=== PATIENT | female | born 1960 | race Caucasian/White ===

== ENCOUNTER → 2016-12-24 | Outpatient (CLI) | payer BC ==
--- NOTE | 2016-12-24 12:07 | MR ---
EXAMINATION TYPE: MR lumbar spine wo con DATE OF EXAM: 12/24/2016 11:33 AM COMPARISON: NONE HISTORY: DDD, Pain TECHNIQUE: Multiplanar, multisequence images of the lumbar spine were acquired. L1-L2: Normal disc appearance without desiccation. No herniation, protrusion or disc bulging. No ca nal stenosis is present. Foramina are patent bilaterally. L2-L3: Normal disc appearance without desiccation. No herniation, protrusion or disc bulging. No ca nal stenosis is present. Foramina are patent bilaterally. L3-L4: Normal disc appearance without desiccation. No herniation, protrusion or disc bulging. No ca nal stenosis is present. Foramina are patent bilaterally. L4-L5: There is mild disc desiccation noted. Mild posterior disc bulge is identified with mild efface ment ventral thecal sac. No evidence for herniation or protrusion. No central stenosis or foraminal e ncroachment. L5-S1: There is mild disc desiccation noted. Mild posterior disc bulge is identified with mild efface ment ventral thecal sac. No evidence for herniation or protrusion. No central stenosis or foraminal e ncroachment. Lumbar segments are intact. No paraspinal masses are identified. Conus medullaris has a normal appe arance. Parapelvic renal cysts suspected. IMPRESSION: 1. Degenerative disc disease with a mild disc bulging as discussed.
== END ==
LOC: RADMRIMAIN 10:44
PROVIDERS: ATTEND Family Medicine
DX: M51.36 Other intervertebral disc degeneration, lumbar region (principal); M51.37 Other intervertebral disc degeneration, lumbosacral region; M51.26 Other intervertebral disc displacement, lumbar region; M51.27 Other intervertebral disc displacement, lumbosacral region
CPT/HCPCS: 72148

== ENCOUNTER → 2017-01-11 | Outpatient (CLI) | payer BC ==
--- NOTE | 2017-01-11 15:20 | US ---
EXAMINATION TYPE: US kidneys/renal and bladder DATE OF EXAM: 01/11/2017 3:00 PM COMPARISON: MRI lumbar spine December 24, 2016 CLINICAL HISTORY: N28.1 RENAL CYSTS ACQUIRED BILATERAL. Recent MRI stated parapelvic renal cysts seen EXAM MEASUREMENTS: Right Kidney: 8.0 x 4.3 x 5.2 cm Left Kidney: 9.2 x 3.8 x 5.4 cm TECHNOLOGIST IMPRESSION: Right Kidney: smaller in size, no obvious renal cysts seen Left Kidney: cortical thinning, no obvious renal cysts seen Bladder: wnl Bilateral Jets seen: yes There is loss of normal cortical medullary differentiation left kidney with thinned cortex. Central p robable parapelvic cysts and MRI are less well seen on ultrasound. There is overall suboptimal visual ization of left kidney on images saved. There is no evidence for hydronephrosis at this point in time in the right kidney. No nephrolithiasis is seen. No suspicious solid or cystic masses are identifi ed on images saved. The urinary bladder is anechoic. Bilateral ureteral jets are seen. IMPRESSION: Simple appearing cysts left kidney are not confirmed, cannot exclude mild left-sided hydronephrosis b ased on central prominence on ultrasound and MRI. Consider nuclear medicine function study correlatio n or further investigation with multi phase contrast-enhanced CT.
== END | disposition home or self-care (01) ==
LOC: RADUSWWP 14:43
PROVIDERS: ATTEND Family Medicine
DX: N28.1 Cyst of kidney, acquired (principal)
CPT/HCPCS: 76770

== ENCOUNTER 2017-02-10 18:10 | Inpatient (IN) | payer BC ==
--- NOTE | 2017-02-10 20:32 | ED ---
Recheck HPI <Will Mike - Last Filed: 02/10/17 22:17> - General Source: patient, RN notes reviewed Mode of arrival: ambulatory Limitations: no limitations <Haydee Barone - Last Filed: 02/10/17 23:16> - General Chief Complaint: Recheck/Abnormal Lab/Rx Stated Complaint: POSS RENAL FAILURE Time Seen by Provider: 02/10/17 20:06 - History of Present Illness Initial Comments: Patient is a 56-year-old female presents to the emergency room for evaluation. Patient states she saw her primary care provider 2 days ago for generalized weakness and body aches. Patient states she received lab work. Patient states that she received a phone call from her primary care provider today that she was in renal failure need to come to the emergency room. Patient denies any history of renal failure. Patient states she's been having on and off abdominal pain that radiates to her back. Patient states been nauseous but denies any vomiting. Patient does state last week that she had a few episodes of diarrhea. Patient denies any constipation or diarrhea this week. Patient denies chest pain shortness of breath. Patient denies pain or burning during urination, trouble urinating or blood in urine. Patient states she has a history of kidney stones. Patient also states she was diagnosed with a cyst over her right kidney a few years ago. Patient states she has followed up with urologist in the past and no concerning findings were noted. (Haydee Barone ) - Related Data Home Medications Medication Instructions Recorded Confirmed Acetaminophen [Tylenol Arthritis] 650 mg PO BID PRN 02/10/17 02/10/17 Aspirin 325 mg PO DAILY 02/10/17 02/10/17 Esomeprazole Magnesium [NexIUM 22.3 mg PO DAILY 02/10/17 02/10/17 24Hr] HYDROcodone/APAP 5-325MG [[place] 1 tab PO Q6HR PRN 02/10/17 02/10/17 5-325] Lisinopril [Zestril] 20 mg PO HS 02/10/17 02/10/17 Magnesium Oxide [Mag-Ox] 400 mg PO BID 02/10/17 02/10/17 Omeprazole 40 mg PO DAILY 02/10/17 02/10/17 Potassium 99 mg PO DAILY 02/10/17 02/10/17 Simvastatin [Zocor] 20 mg PO HS 02/10/17 02/10/17 Allergies Allergy/AdvReac Type Severity Reaction Status Date / Time Anesthetics - Amide Type Allergy Nausea & Verified 02/10/17 20:17 Vomiting Anesthetics - Fina Type- Allergy Nausea & Verified 02/10/17 20:17 Parabens Vomiting Review of Systems ROS Other: All systems not noted in ROS Statement are negative. <Will Mike - Last Filed: 02/10/17 22:17> ROS Other: All systems not noted in ROS Statement are negative. <Haydee Barone - Last Filed: 02/10/17 23:16> ROS Statement: Those systems with pertinent positive or pertinent negative responses have been documented in the HPI. Past Medical History Past Medical History: Coronary Artery Disease (CAD), Hyperlipidemia, Hypertension History of Any Multi-Drug Resistant Organisms: None Reported Past Surgical History: Heart Catheterization With Stent, Hysterectomy, Orthopedic Surgery, Tubal Ligation Additional Past Surgical History / Comment(s): d & c shoulder carpel tunnel Smoking Status: Never smoker Past Alcohol Use History: Rare Past Drug Use History: None Reported <Haydee Barone - Last Filed: 02/10/17 23:16> General Exam <Will Mike - Last Filed: 02/10/17 22:17> Limitations: no limitations General appearance: alert, in no apparent distress Head exam: Present: atraumatic, normocephalic, normal inspection Eye exam: Present: normal appearance ENT exam: Present: normal exam Neck exam: Present: normal inspection Respiratory exam: Present: normal lung sounds bilaterally. Absent: respiratory distress Cardiovascular Exam: Present: regular rate, normal rhythm, normal heart sounds Extremities exam: Present: normal inspection Back exam: Present: normal inspection Neurological exam: Present: alert, oriented X3, CN II-XII intact, normal gait Psychiatric exam: Present: normal affect, normal mood Skin exam: Present: warm, dry, intact, normal color. Absent: rash <Haydee Barone - Last Filed: 02/10/17 23:16> - General Exam Comments Initial Comments: Sitting in exam room, no acute distress. (Haydee Barone) Course <Will Mike - Last Filed: 02/10/17 22:17> <Haydee Barone - Last Filed: 02/10/17 23:16> Vital Signs 02/10/17 02/10/17 02/10/17 19:06 22:00 23:02 Temperature 98.7 F 97.7 F 97.5 F L Pulse Rate 76 62 73 Respiratory 18 18 18 Rate Blood Pressure 129/72 125/64 109/60 O2 Sat by Pulse 100 100 100 Oximetry - Reevaluation(s) Reevaluation #1: 02/10/17 22:17 I did do a [id number] examination the patient did discuss findings her and her . Patient be admitted for evaluation for hyperkalemia and renal insufficiency. (Will Mike) Medical Decision Making - Lab Data Result diagrams: 02/10/17 20:54 02/10/17 20:54 <Will Mike - Last Filed: 02/10/17 22:17> - Lab Data Result diagrams: 02/10/17 20:54 02/10/17 20:54 <Haydee Barone - Last Filed: 02/10/17 23:16> - Medical Decision Making Patient is a 56-year-old female presents emergency room for reevaluation of labs. Patient states she was called by her primary care provider earlier today to come to the emergency room because she was in renal failure. Labs significant for renal insufficiency. Potassium 6.5. Patient given fluids, Lasix, albuterol updraft and Kayexalate. Case discussed with Dr. Mike. Dr. Mike discussed case with Dr. Linton who agreed to admit patient. (Haydee Barone) - Lab Data Lab Results 02/10/17 02/10/17 02/10/17 Range/Units 20:54 20:54 20:54 WBC 4.3 (3.8-10.6) k/uL RBC 3.37 L (3.80-5.40) m/uL Hgb 11.9 (11.4-16.0) gm/dL Hct 32.9 L (34.0-46.0) % MCV 97.8 (80.0-100.0) fL MCH 35.3 H (25.0-35.0) pg MCHC 36.1 (31.0-37.0) g/dL RDW 11.8 (11.5-15.5) % Plt Count 208 (150-450) k/uL Neutrophils % 51 % Lymphocytes % 40 % Monocytes % 5 % Eosinophils % 1 % Basophils % 0 % Neutrophils # 2.2 (1.3-7.7) k/uL Lymphocytes # 1.7 (1.0-4.8) k/uL Monocytes # 0.2 (0-1.0) k/uL Eosinophils # 0.1 (0-0.7) k/uL Basophils # 0.0 (0-0.2) k/uL Sodium 139 (137-145) mmol/L Potassium 6.5 H* (3.5-5.1) mmol/L Chloride 109 H (98-107) mmol/L Carbon Dioxide 22 (22-30) mmol/L Anion Gap 8 mmol/L BUN 48 H (7-17) mg/dL Creatinine 2.03 H (0.52-1.04) mg/dL Est GFR (MDRD) Af Amer 31 (>60 ml/min/1.73 sqM) Est GFR (MDRD) Non-Af 25 (>60 ml/min/1.73 sqM) Glucose 109 H (74-99) mg/dL Calcium 9.6 (8.4-10.2) mg/dL Magnesium 2.2 (1.6-2.3) mg/dL Total Bilirubin 0.9 (0.2-1.3) mg/dL AST 21 (14-36) U/L ALT 28 (9-52) U/L Alkaline Phosphatase 90 (38-126) U/L Total Protein 7.2 (6.3-8.2) g/dL Albumin 4.2 (3.5-5.0) g/dL Amylase 87 (30-110) U/L Lipase 106 (23-300) U/L Urine Color Yellow Urine Appearance Clear (Clear) Urine pH 5.5 (5.0-8.0) Ur Specific [place] 1.011 (1.001-1.035) Urine Protein Negative (Negative) Urine Glucose (UA) Negative (Negative) Urine Ketones Negative (Negative) Urine Blood Negative (Negative) Urine Nitrite Negative (Negative) Urine Bilirubin Negative (Negative) Urine Urobilinogen <2.0 (<2.0) mg/dL Ur Leukocyte Esterase Negative (Negative) 02/10/17 21:50 Normal sinus rhythm, ventricular rate 75 bpm, NH interval 150 ms, QRS duration 82 ms, QT/QTC 380/424 seconds (Haydee Barone) Disposition <Will Mike - Last Filed: 02/10/17 22:17> Decision Date: 02/10/17 <Haydee Barone - Last Filed: 02/10/17 23:16> Clinical Impression: Hyperkalemia, Renal insufficiency Disposition: ADMITTED IP TO THIS HOSP Condition: Stable
[2017-02-10 21:08] LABS: Basophils % (A) 0 %; CH 34.4; CHCM 35.2; Eosinophils # (A) 0.1 k/uL (0-0.7); Eosinophils % (A) 1 %; HCT 32.9 % (34.0-46.0); HDW 2.56; HGB 11.9 gm/dL (11.4-16.0); Luc # (Auto) 0.12; Luc % (Auto) 3; Lymphocytes # (A) 1.7 k/uL (1.0-4.8); Lymphocytes % (A) 40 %; MCH 35.3 pg (25.0-35.0); MCHC 36.1 g/dL (31.0-37.0); MCV 97.8 fL (80.0-100.0); Mean Platelet Volume 7.8; Monocytes # (A) 0.2 k/uL (0-1.0); Monocytes % (A) 5 %; Neutrophils # (A) 2.2 k/uL (1.3-7.7); Neutrophils % (A) 51 %; RBC 3.37 m/uL (3.80-5.40); RDW 11.8 % (11.5-15.5); WBC 4.3 k/uL (3.8-10.6); WBC (Perox) 4.39
[2017-02-10 21:15] LABS: Appearance,Urine Clear (Clear); Bilirubin,Urine Negative (Negative); Glucose,Urine (UA) Negative (Negative); Ketones,Urine Negative (Negative); Leukocyte Esterase,Urine Negative (Negative); Nitrite,Urine Negative (Negative); PH, Urine 5.5 (5.0-8.0); Protein,Urine Negative (Negative); Specific Gravity,Urine 1.011 (1.001-1.035); UA Billing (MACRO vs. MICRO) CHEM; Urobilinogen,Urine <2.0 mg/dL (<2.0)
[2017-02-10 21:23] LABS: Calcium 9.6 mg/dL (8.4-10.2); Magnesium 2.2 mg/dL (1.6-2.3); Total Bilirubin 0.9 mg/dL (0.2-1.3); Total Protein 7.2 g/dL (6.3-8.2)
[2017-02-10 21:32] LABS: Potassium 6.5 mmol/L (3.5-5.1)
[2017-02-10] MEDS ORDERED: FUROSEMIDE 10 MG/ML 4 ML VIAL IV STA (21:37)
[2017-02-10] MEDS ORDERED: SODIUM CHLORIDE 0.9% 1,000 ML IV ONE (21:37)
[2017-02-10] MEDS ORDERED: ALBUTEROL NEBULIZED 2.5 MG/3 ML INHALATION STA (21:37)
[2017-02-10] MEDS ORDERED: SODIUM POLYSTYRENE SULFONATE 15 GM/60 ML BOTTLE PO STA (21:38)
[2017-02-10] MEDS ORDERED: ONDANSETRON 4 MG/2 ML VIAL IVP PRN (22:33)
[2017-02-10] MEDS ORDERED: ACETAMINOPHEN TAB 325 MG TAB PO PRN (22:33)
[2017-02-10] MEDS ORDERED: HYDROcodone/APAP 5-325MG 1 EACH TAB PO PRN (22:33)
[2017-02-10] MEDS ORDERED: IBUPROFEN 400 MG TAB PO PRN (22:33)
[2017-02-10] MEDS ORDERED: NALOXONE 0.4 MG/ML 1 ML VIAL IV PRN (22:33)
[2017-02-11] MEDS: SODIUM CHLORIDE 0.9% 1,000 ML IV SCH ×3 (01:40→14:22)
[2017-02-11] MEDS: MAGNESIUM OXIDE 400 MG TAB PO SCH ×2 (08:31→21:10)
[2017-02-11] MEDS ORDERED: ESOMEPRAZOLE MAGNESIUM 22.3 MG PO SCH (09:00)
[2017-02-11] MEDS: PANTOPRAZOLE 40 MG TABLET PO SCH (09:23)
[2017-02-11 09:36] LABS: Calcium 9.3 mg/dL (8.4-10.2); Magnesium 1.8 mg/dL (1.6-2.3); Potassium 5.8 mmol/L (3.5-5.1); Total Bilirubin 1.2 mg/dL (0.2-1.3); Total Protein 6.4 g/dL (6.3-8.2)
[2017-02-11] MEDS ORDERED: SODIUM POLYSTYRENE SULFONATE 15 GM/60 ML BOTTLE PO STA (11:04)
[2017-02-11 11:53] VITALS: BMI 37.0
[2017-02-11] MEDS: ASPIRIN 325 MG TAB PO SCH (12:47)
[2017-02-11] MEDS ORDERED: DEXTROSE 5% IN WATER 1,000 ML IV SCH (13:45)
[2017-02-11] MEDS ORDERED: INSULIN REGULAR 100 UNIT/ML VIAL IV ONE (13:51)
[2017-02-11] MEDS: DEXTROSE 50%-WATER 50 ML SYRINGE IVP STA ×2 (14:15→14:22)
[2017-02-11] MEDS ORDERED: SODIUM BICARB 8.4% 50 ML SYR (1 MEQ/ML) IV ONE ×3 (14:15→14:45)
[2017-02-11 18:21] LABS: Potassium 5.2 mmol/L (3.5-5.1)
--- NOTE | 2017-02-11 20:29 | HP ---
DATE OF ADMISSION: 02/10/2017 CHIEF COMPLAINT: Abnormal labs and generalized aches and pains. HISTORY OF PRESENT ILLNESS: This 56-year-old woman with a past medical history of CAD, history of hypertension, hyperlipidemia, history of CAD, stent, history of hysterectomy, being followed by Dr. Wanda Hare in the outpatient setting, was not feeling well last week. The patient had diarrhea, some nausea and vomiting. Patient had diminished p.o. intake. Patient was complaining of generalized aches and pains and weakness. Patient went to Dr. Hare's office and was found to have abnormal labs. Patient was directed to [facility]. The patient has multiple abnormal labs, including potassium 6.5, creatinine 2.03. Patient was given some Kayexalate. With some difficulty patient was able to take the Kayexalate. Patient is 5.8 today. Of note, the patient also has multiple evaluations recently. A stress test was done which showed normal findings. The patient also had lumbar spine MRI done which showed degenerative disc disease with mild disc bulging. Patient also had abdominal bladder scan today which showed mild left-sided hydronephrosis. Otherwise, simple cyst of the left kidney was also noted. There is no history of any fever, rigor, or chills. No history of any headache, loss of consciousness, seizures. PAST MEDICAL HISTORY: 1. History of hypertension. 2. Hyperlipidemia. 3. History of CAD and stent. MEDICATIONS PRIOR TO ADMISSION: 1. Zocor 20 mg at bedtime. 2. Potassium 99 mg p.o. daily. 3. Omeprazole 40 mg daily. 4. Magnesium oxide 400 mg p.o. b.i.d. 5. Zestril 20 mg at bedtime. 6. Nexium 24-hour 22.3 mg p.o. daily. ALLERGIES: ANESTHETICS. FAMILY HISTORY: History of cancer and scoliosis. SOCIAL HISTORY: No history of smoking. No history of alcohol intake. REVIEW OF SYSTEMS: ENT: No diminishing hearing. No diminished vision. CARDIOVASCULAR: No angina, palpitations. RESPIRATORY: No cough. GI: No nausea. : No dysuria. NERVOUS SYSTEM: As mentioned earlier. ALLERGY/IMMUNOLOGY: No asthma, hayfever. MUSCULOSKELETAL: As mentioned earlier. HEMATOLOGY/ONCOLOGY: No history of anemia. ENDOCRINE: No history of diabetes, hypothyroidism. CONSTITUTIONAL: As mentioned earlier. DERMATOLOGY: Negative. RHEUMATOLOGY: Negative. PSYCHIATRY: As mentioned earlier. PHYSICAL EXAMINATION: Patient is alert and oriented x3. Pulse is 96, blood pressure 119/62, respiration 19, temperature 96.8, pulse ox 92% on room air. HEENT: Conjunctivae normal. Oral mucosa moist. NECK: No jugular venous distention. No carotid bruit. No lymph node enlargement. CARDIOVASCULAR SYSTEM: S1, S2 muffled. RESPIRATORY SYSTEM: Breath sounds diminished at the bases. A few scattered rhonchi and crackles. ABDOMEN: Soft, non-tender. No mass palpable. LEGS: No edema. No swelling. NERVOUS SYSTEM: Higher functions as mentioned earlier. Moves all 4 limbs. No focal motor or sensory deficit. LYMPHATICS: No lymph node palpable in neck, axillae or groin. SKIN: No ulcer, rash, bleeding. LABS: 4.6, hemoglobin 11.9. Sodium 139, potassium 6.5. Creatinine is 2.03. Glucose is 103. ASSESSMENT: 1. Acute renal failure secondary to acute tubular necrosis and prerenal factors. 2. Hyperkalemia secondary to acute renal failure. 3. History of recent diarrhea with acute viral illness and possibly gastroenteritis. 4. Back pain and degenerative joint disease. 5. Left kidney cyst. 6. Minimal left-sided hydronephrosis. 7. Essential hypertension. 8. Hyperlipidemia. 9. Coronary artery disease, stent. 10. History of hysterectomy. RECOMMENDATIONS AND DISCUSSION: In this 56-year-old woman who presented with multiple complex medical issues, we will monitor the patient closely, continue the current medication. The patient is unable to tolerate Kayexalate. I would recommend changing the fluid to D5 water. Nephrology evaluation. Potassium is still elevated. Glucose/insulin regimen to be used. Otherwise, continue the rest of the medications. Hold lisinopril at this time. Otherwise, monitor the blood pressure closely. Prognosis guarded because of multiple complex medical issues. Further recommendations to follow. A copy of this dictation is being forwarded to Dr. Wanda Hare, who is the primary physician. [facility] CENTERJenae
[2017-02-11] MEDS ORDERED: LISINOPRIL 20 MG TAB PO SCH (21:00)
[2017-02-11] MEDS ORDERED: ATORVASTATIN 10 MG TAB PO SCH (21:00)
[2017-02-11 22:33] VITALS: TEMP 97.6
[2017-02-12] MEDS: SODIUM CHLORIDE 0.9% 1,000 ML IV SCH ×2 (04:58→08:03)
[2017-02-12 07:40] VITALS: BP 120/70; PULSE 62; RESP 18
[2017-02-12] MEDS: PANTOPRAZOLE 40 MG TABLET PO SCH (08:03)
[2017-02-12] MEDS: MAGNESIUM OXIDE 400 MG TAB PO SCH (08:03)
[2017-02-12] MEDS: ASPIRIN 325 MG TAB PO SCH (08:03)
--- NOTE | 2017-02-12 09:39 | P.NPCON ---
History of Present Illness - Reason for Consult acute renal failure - History of Present Illness Reason for consultation: Acute kidney injury History of present illness: Patient is a 56-year-old female seen in renal consultation for acute kidney injury. Her baseline creatinine from August 2016 is near 1 and was 2.03 on admission. It did come down to 1.6 as of yesterday with IV hydration. Patient states she's been feeling weak with general body aches for the last 2 weeks or so. She's also been having diarrhea for the last 2 weeks. No melena or hematochezia. Her oral intake has been poor. Additionally a potassium level of 6.5 and admission. Patient states a potassium level was running low and she was taking potassium supplements. She was also on lisinopril at home. Currently she states her diarrhea is improved. She denies any vomiting. Denies chest pain or shortness of breath. Potassium level did come down 5.2 as of yesterday. Urinalysis is benign. Admits to good urine output. No hematuria or dysuria. Denies use of NSAIDs. Denies family history of renal disease. Vital signs are stable. General: The patient appeared well nourished and normally developed. HEENT: Head exam is unremarkable. Neck is without jugular venous distension. LUNGS: Lungs are clear to auscultation and percussion. Breath sounds decreased. HEART: Rate and Rhythm are regular. First and second heart sounds normal. No murmurs, rubs or gallops. ABDOMEN: Abdominal exam reveals normal bowel sounds. Non-tender and non- distended. No evidence of peritonitis. EXTREMITITES: No clubbing, cyanosis, or edema. Past Medical History Past Medical History: Coronary Artery Disease (CAD), Hyperlipidemia, Hypertension History of Any Multi-Drug Resistant Organisms: None Reported Past Surgical History: Heart Catheterization With Stent, Hysterectomy, Orthopedic Surgery, Tubal Ligation Additional Past Surgical History / Comment(s): d & c shoulder carpel tunnel Past Anesthesia/Blood Transfusion Reactions: Postoperative Nausea & Vomiting ( PONV) Date of Last Stent Placement:: 1998 Smoking Status: Never smoker Past Alcohol Use History: Rare Past Drug Use History: None Reported - Past Family History Father Family Medical History: Cancer Mother Family Medical History: Congestive Heart Failure (CHF), Hypertension, Myocardial Infarction (NM) Additional Family Medical History / Comment(s): scoliosis Medications and Allergies Home Medications Medication Instructions Recorded Confirmed Type Esomeprazole Magnesium [NexIUM 22.3 mg PO DAILY 02/10/17 02/10/17 History 24Hr] Lisinopril [Zestril] 20 mg PO HS 02/10/17 02/10/17 History Magnesium Oxide [Mag-Ox] 400 mg PO BID 02/10/17 02/10/17 History Omeprazole 40 mg PO DAILY 02/10/17 02/10/17 History Potassium 99 mg PO DAILY 02/10/17 02/10/17 History Simvastatin [Zocor] 20 mg PO HS 02/10/17 02/10/17 History Allergies Allergy/AdvReac Type Severity Reaction Status Date / Time Anesthetics - Amide Type Allergy Nausea & Verified 02/10/17 20:17 Vomiting Anesthetics - Fina Type- Allergy Nausea & Verified 02/10/17 20:17 Parabens Vomiting Physical Exam Vitals: Vital Signs Temp Pulse Resp BP Pulse Ox 02/12/17 07:00 97.6 F 62 18 120/70 98 02/11/17 22:31 97.6 F 82 17 106/68 95 02/11/17 15:00 96.7 F L 89 18 120/70 97 Intake and Output 02/11/17 02/12/17 02/12/17 22:59 06:59 14:59 Other: # Voids 1 0 Results - Lab Results Most recent lab results Calcium 9.3 mg/dL (8.4-10.2) 02/11/17 08:58 Magnesium 1.8 mg/dL (1.6-2.3) 02/11/17 08:58 02/10/17 20:54 02/11/17 17:44 Assessment and Plan Plan: Assessment: #1. Nonoliguric acute kidney injury mostly prerenal in nature secondary to diarrhea and poor oral intake. Improving. Creatinine was 2.03 on admission and down to 1.6 as of yesterday. Urinalysis noted to be benign. #2. Hyperkalemia secondary to acute kidney injury and potassium supplementation. Further worsened by metabolic acidosis. Improved with medical management. #3. Metabolic acidosis secondary to acute kidney injury and IV fluids. Improved. #4. Diarrhea. Seems to have improved. Plan: Continue normal saline to be run at 75 mL an hour. Encourage oral intake. Avoid nephrotoxic agents and hypotensive episodes. Potassium supplementation has been discontinued. Follow-up morning labs. Thank you for the consultation. I will continue to follow the patient with you during her hospital stay.
[2017-02-12 10:12] LABS: Potassium 5.3 mmol/L (3.5-5.1)
--- NOTE | 2017-02-13 14:14 | DS ---
DATE OF ADMISSION: 02/10/2017 DATE OF DISCHARGE: 02/12/2017 FINAL DIAGNOSES: 1. Acute renal failure, possibly secondary to acute tubular necrosis and prerenal factors and dehydration secondary to diarrheal disease. 2. Hyperkalemia secondary to acute renal failure. 3. History of recent diarrhea with acute viral illness, possibly acute gastroenteritis. 4. History of back pain degenerative joint disease. 5. Left kidney cyst. 6. Minimal left-sided hydronephrosis. 7. History of hypertension. 8. History of hyperlipidemia. 9. History of coronary artery disease with stent. 10. History of hysterectomy. DISCHARGE DISPOSITION: The patient will be discharged in stable condition with guarded prognosis. Discharged when cleared by Dr. Lamas. HISTORY OF PRESENT ILLNESS: This 56-year-old woman with a past medical history of multiple medical problems being followed by Dr. Wanda Hare in the outpatient setting was admitted with features of acute renal failure hyperkalemia. The patient was given IV fluids. The patient improved significantly. Potassium was 6.5 on admission, improved to 5.3. Creatinine was 1.33. On exam, vitals are stable. CARDIOVASCULAR SYSTEM: S1, S2 muffled. ABDOMEN: Soft. NERVOUS SYSTEM: Nonfocal. Nephrology saw the patient cleared the patient for discharge. The following will be recommendation for the patient: 1. Diet is low potassium. 2. Activity limited until followup. 3. Follow up with Dr. Wanda Hare in 2 to 3 days. 4. CBC, BMP per Dr. Lamas is advised. 5. Medications are: a. Hold JEFFERY inhibitors. b. Magnesium oxide 400 mg p.o. b.i.d.. c. Omeprazole 40 mg daily. d. Zocor 20 mg p.o. q.h.s. 6. The blood pressure to be evaluated in the outpatient setting and consider antihypertensive treatment. Blood pressure is 106/68 and 120/70 currently.
== END 2017-02-12 13:48 | disposition home or self-care (01) | DRG 683 ==
LOC: EC 18:10 → 4MS4W 22:18
PROVIDERS: ADMIT Hospitalist; ATTEND Hospitalist
DX: N17.0 Acute kidney failure with tubular necrosis (principal); E87.2 Acidosis; N13.30 Unspecified hydronephrosis; N28.1 Cyst of kidney, acquired; E87.5 Hyperkalemia; A08.4 Viral intestinal infection, unspecified; I10 Essential (primary) hypertension; I25.10 Atherosclerotic heart disease of native coronary artery without angina pectoris; E78.5 Hyperlipidemia, unspecified; M51.36 Other intervertebral disc degeneration, lumbar region; Z87.442 Personal history of urinary calculi; Z95.5 Presence of coronary angioplasty implant and graft; Z90.710 Acquired absence of both cervix and uterus; Z79.899 Other long term (current) drug therapy
CPT/HCPCS: 36415; 80048; 80051; 80053; 81003; 82150; 83690; 83735; 85025; 93005; 94640; 96361; 96374; 99284

== ENCOUNTER → 2017-02-15 | Outpatient (CLI) | payer BC ==
[2017-02-15 14:26] LABS: CH 34.4; CHCM 34.2; HCT 32.5 % (34.0-46.0); HDW 2.54; HGB 10.9 gm/dL (11.4-16.0); MCH 33.8 pg (25.0-35.0); MCHC 33.4 g/dL (31.0-37.0); Mean Platelet Volume 7.7; RBC 3.22 m/uL (3.80-5.40); RDW 12.2 % (11.5-15.5); WBC 6.5 k/uL (3.8-10.6)
[2017-02-15 14:54] LABS: Calcium 9.7 mg/dL (8.4-10.2); Potassium 4.2 mmol/L (3.5-5.1)
== END | disposition home or self-care (01) ==
LOC: LABWHC1 13:41
PROVIDERS: ATTEND Nurse Practitioner
DX: N17.9 Acute kidney failure, unspecified (principal); I10 Essential (primary) hypertension
CPT/HCPCS: 36415; 80048; 85027

== ENCOUNTER → 2017-02-25 | Outpatient (CLI) | payer BC ==
--- NOTE | 2017-02-26 10:30 | ECHOF ---
Referral Reason: MEASUREMENTS -------- HEIGHT: 152.4 cm WEIGHT: 86.2 kg BP: IVSd: 1.0 cm (0.6 - 1.1) LVIDd: 3.7 cm (3.9 - 5.3) LVPWd: 1.1 cm (0.6 - 1.1) IVSs: 1.0 cm LVIDs: 2.7 cm LVPWs: 1.3 cm Ao Diam: 3.0 cm (2.0 - 3.7) AV Cusp: 1.8 cm (1.5 - 2.6) LA Diam: 2.1 cm (2.7 - 3.8) MV EXCURSION: 13.883 mm (> 18.000) MV EF SLOPE: 104 mm/s (70 - 150) EPSS: 0.9 cm MV E Turner: 1.28 m/s MV DecT: 290 ms MV A Turner: 0.87 m/s MV E/A Ratio: 1.48 RAP: 5.00 mmHg RVSP: 27.28 mmHg FINDINGS -------- Sinus rhythm. This was a technically good study. Left ventricular wall thickness is normal. Overall left ventricular systolic function is normal with, an EF between 55 - 60 %. The right ventricle is normal in size and function. The left atrium is normal in size. The right atrium is normal in size. Aortic valve is trileaflet and is mildly thickened. There is trace mitral regurgitation. Trace tricuspid regurgitation present. The right ventricular systolic pressure, as measured by Doppler, is 27.28mmHg. Pulmonic valve appears structurally normal. The aortic root size is normal. The pericardium is normal. CONCLUSIONS -------- 1. Sinus rhythm. 2. Trace tricuspid regurgitation present. 3. The right ventricular systolic pressure, as measured by Doppler, is 27.28mmHg. 4. Pulmonic valve appears structurally normal. 5. The aortic root size is normal. 6. The pericardium is normal. 7. This was a technically good study. 8. Left ventricular wall thickness is normal. 9. Overall left ventricular systolic function is normal with, an EF between 55 - 60 %. 10. The right ventricle is normal in size and function. 11. The left atrium is normal in size. 12. The right atrium is normal in size. 13. Aortic valve is trileaflet and is mildly thickened. 14. There is trace mitral regurgitation. IMMIGRATION COORDINATOR: Ritu Viveros RDCS
== END | disposition home or self-care (01) ==
LOC: RADECHMAIN 12:56
PROVIDERS: ATTEND Family Medicine
DX: I25.10 Atherosclerotic heart disease of native coronary artery without angina pectoris (principal)
CPT/HCPCS: 93306

== ENCOUNTER → 2017-03-10 | Outpatient (CLI) | payer BC ==
[2017-03-10 10:54] LABS: Basophils % (A) 0 %; CH 34.2; CHCM 33.8; Eosinophils # (A) 0.1 k/uL (0-0.7); Eosinophils % (A) 1 %; HCT 33.2 % (34.0-46.0); HDW 2.66; HGB 10.9 gm/dL (11.4-16.0); Luc # (Auto) 0.13; Luc % (Auto) 3; Lymphocytes # (A) 1.6 k/uL (1.0-4.8); Lymphocytes % (A) 32 %; MCH 33.5 pg (25.0-35.0); MCHC 32.9 g/dL (31.0-37.0); MCV 101.6 fL (80.0-100.0); Macrocytosis Slight; Mean Platelet Volume 7.6; Monocytes # (A) 0.3 k/uL (0-1.0); Monocytes % (A) 5 %; Neutrophils # (A) 2.9 k/uL (1.3-7.7); Neutrophils % (A) 59 %; RBC 3.27 m/uL (3.80-5.40); RDW 12.8 % (11.5-15.5); WBC 4.9 k/uL (3.8-10.6); WBC (Perox) 5.07
[2017-03-10 10:55] LABS: ALT 29 U/L (9-52); AST 28 U/L (14-36); Alkaline Phosphatase 83 U/L (38-126); Anion Gap 9 mmol/L; Blood Urea Nitrogen 14 mg/dL (7-17); Calcium 9.3 mg/dL (8.4-10.2); Carbon Dioxide 27 mmol/L (22-30); Chloride 106 mmol/L (98-107); Cholesterol 178 mg/dL (<200); Glucose 96 mg/dL (74-99); HDL Cholesterol 50 mg/dL (40-60); Magnesium 1.6 mg/dL (1.6-2.3); Non-African American GFR(MDRD) 51 (>60 ml/min/1.73 sqM); Sodium 142 mmol/L (137-145); Total Bilirubin 2.1 mg/dL (0.2-1.3); Total Protein 6.7 g/dL (6.3-8.2); Triglycerides 174 mg/dL (<150); Uric Acid 6.2 mg/dL (3.7-7.4)
== END | disposition home or self-care (01) ==
LOC: LABWHC1 10:09
PROVIDERS: ATTEND Family Medicine
DX: N18.3 Chronic kidney disease, stage 3 (moderate) (principal); E78.5 Hyperlipidemia, unspecified; E83.42 Hypomagnesemia
CPT/HCPCS: 36415; 80053; 80061; 82043; 82306; 83735; 83970; 84550; 85025

== ENCOUNTER 2017-05-18 14:37 | Emergency (ER) | payer BC ==
[2017-05-18 14:43] VITALS: RESP 18
--- NOTE | 2017-05-18 15:09 | ED ---
General Adult HPI - General Chief complaint: Abdominal Pain Stated complaint: Abd Pain Time Seen by Provider: 05/18/17 14:48 Source: patient, RN notes reviewed Mode of arrival: ambulatory Limitations: no limitations - History of Present Illness Initial comments: Chief complaint and history of present illness this is a 49-year-old female complaint of frequency urgency and dysuria for the past 12 hours. Mild discomfort left lower quadrant and left lower back. Patient reports she has had both diverticulitis and kidney stones in the past but this feels different. She states it feels like a urinary tract infection. Denies nausea vomiting or fever. - Related Data Home Medications Medication Instructions Recorded Confirmed Magnesium Oxide [Mag-Ox] 400 mg PO BID 02/10/17 05/18/17 Omeprazole 40 mg PO DAILY 02/10/17 05/18/17 Simvastatin [Zocor] 30 mg PO HS 02/10/17 05/18/17 Acetaminophen [Tylenol Arthritis] 650 mg PO Q6H PRN 05/18/17 05/18/17 Aspirin EC [Ecotrin Low Dose] 81 mg PO DAILY 05/18/17 05/18/17 Ergocalciferol [Vitamin D2] 50,000 unit PO WOOD[place] 05/18/17 05/18/17 Ferrous Sulfate [Feosol] 325 mg PO [place]OD[place] 05/18/17 05/18/17 HYDROcodone/APAP 5-325MG [[place] 1 tab PO Q6HR PRN 05/18/17 05/18/17 5-325] Metoprolol Succinate (ER) [Toprol 50 mg PO DAILY 05/18/17 05/18/17 Xl] Paricalcitol 2 mcg PO SUTH 05/18/17 05/18/17 Previous Rx's Medication Instructions Recorded Ondansetron Odt [Zofran Odt] 4 mg PO Q8HR PRN #10 tab 05/18/17 Tamsulosin [Flomax] 0.4 mg PO DAILY #14 cap 05/18/17 Allergies Allergy/AdvReac Type Severity Reaction Status Date / Time Anesthetics - Amide Type AdvReac Nausea & Verified 05/18/17 15:13 Vomiting Anesthetics - Fina Type- AdvReac Nausea & Verified 05/18/17 15:13 Parabens Vomiting oxycodone AdvReac Nausea & Verified 05/18/17 15:13 Vomiting Review of Systems ROS Statement: Those systems with pertinent positive or pertinent negative responses have been documented in the HPI. Review of systems no complaint of any visual acuity changes no headache no chest pain or shortness of breath no GI problems problems frequency urgency or dysuria. No skin rashes no neuro deficits. All systems are reviewed. Past medical problems significant for coronary artery disease with one stent. She's never had a heart attack. She has hyperlipidemia, hypertension and stage III renal failure. Patient's past surgeries include heart catheterization with one stent, ovaries and tubes, arthroscopic surgery left shoulder. The patient's family history significant for father with colon cancer. The patient is getting colonoscopies. She also has ALLERGIES to am I and Shalonda-type anesthetics. Patient does not smoke rarely drinks alcohol socially. ROS Other: All systems not noted in ROS Statement are negative. Past Medical History Past Medical History: Coronary Artery Disease (CAD), Hyperlipidemia, Hypertension Additional Past Medical History / Comment(s): renal failure stage 3 History of Any Multi-Drug Resistant Organisms: None Reported Past Surgical History: Heart Catheterization With Stent, Hysterectomy, Orthopedic Surgery, Tubal Ligation Additional Past Surgical History / Comment(s): d & c shoulder carpel tunnel Past Anesthesia/Blood Transfusion Reactions: Postoperative Nausea & Vomiting ( PONV) Date of Last Stent Placement:: 1998 Past Psychological History: No Psychological Hx Reported Smoking Status: Never smoker Past Alcohol Use History: Rare Past Drug Use History: None Reported - Past Family History Father Family Medical History: Cancer Mother Family Medical History: Congestive Heart Failure (CHF), Hypertension, Myocardial Infarction ([place]) Additional Family Medical History / Comment(s): scoliosis General Exam - General Exam Comments Initial Comments: General: The patient is awake and alert, complaining of frequency urgency dysuria since this morning. Vital signs show temperature 98.1 pulse 77 respiratory rate 18 pulse ox 96 been room air blood pressure 186/91 Eye: Pupils are equal, round and reactive to light, extra-ocular movements are intact ; there is normal conjunctiva bilaterally. No signs of icterus. Ears, nose, mouth and throat: There are moist mucous membranes and no oral lesions. Neck: The neck is supple, there is no tenderness , no anterior cervical lymphadenopathy, thyroid not enlarged. Cardiovascular: There is a regular rate and rhythm. No murmur, rub or gallop is appreciated. Respiratory: Lungs are clear to auscultation, respirations are non-labored, breath sounds are equal. No wheezes, stridor, rales, or rhonchi. Gastrointestinal: Soft, non-distended, non-tender abdomen without masses or organomegaly noted. There is no rebound or guarding present. No CVA tenderness. Bowel sounds are unremarkable. Chief complaint is left lower back pain and mild left lower quadrant pain. No pain with kidney punching. No rash noted early shingles was discussed. No guarding or evidence of pain with palpation to the left lower quadrant. Back: No rash Musculoskeletal: Normal ROM, no tenderness, slight edema.. There is no calf tenderness or swelling. Sensation intact. Pulses equal bilaterally 2+. Neurological: No complaint of any neuro deficits, no problems with dizziness. Skin: Skin is warm and dry and no rashes or lesions are noted. Early shingles discussed. Limitations: no limitations Course Vital Signs 05/18/17 05/18/17 05/18/17 14:38 15:42 16:57 Temperature 98.1 F Pulse Rate 77 67 60 Respiratory 18 20 18 Rate Blood Pressure 186/91 145/78 O2 Sat by Pulse 96 98 96 Oximetry 05/18/17 18:00 Temperature 96.9 F L Pulse Rate 61 Respiratory 18 Rate Blood Pressure 118/61 O2 Sat by Pulse 95 Oximetry Medical Decision Making - Medical Decision Making Patient states that when she take oxycodone gives her upset stomach. She states she can take Dilaudid. Soon after the patient arrived emergency room her symptoms became more kidney stone-like. Mildly diaphoretic with left lower quadrant pain. Her urine showed 182 red cells 4 whites. No bacteria. Patient had an IV started and she received medications for pain and nausea. Radiologist reviewed the x-ray of the abdomen and his final impression is overall nonobstructive bowel gas pattern as read by Dr. Cool CT the abdomen and pelvis is done without IV oral contrast. Significant findings include there is mild left-sided hydronephrosis and mild plus hydroureter [place] down to a 4 mm obstructing calcification in the distalmost left ureter, approximately 1.5 cm proximal to the left UVJ. There is subtle periureteral edematous reticulation noted. In the upper pole of the right kidney is a 3 mm nonobstructing calcification there are no other calcifications in the kidneys or ureters or bladder. Final impression is positive for mild plus obstructive uropathy on the left, secondary to a 4 mm distal left ureteral calcification. As read by Dr. Velez Patient states she is feeling good enough to go home now. She be placed on medication for pain, also increased urine output and to control nausea. Advised follow-up with family physician she is already seen a urologist before because of a prior kidney stone years ago. Told to call them if she has difficulties return emergency room as needed - Lab Data Result diagrams: 05/18/17 15:55 05/18/17 15:55 Lab Results 05/18/17 05/18/17 05/18/17 Range/Units 15:16 15:55 15:55 WBC 7.7 (3.8-10.6) k/uL RBC 3.68 L (3.80-5.40) m/uL Hgb 12.5 (11.4-16.0) gm/dL Hct 36.1 (34.0-46.0) % MCV 98.1 (80.0-100.0) fL MCH 33.9 (25.0-35.0) pg MCHC 34.5 (31.0-37.0) g/dL RDW 12.2 (11.5-15.5) % Plt Count 223 (150-450) k/uL Neutrophils % 67 % Lymphocytes % 26 % Monocytes % 5 % Eosinophils % 1 % Basophils % 0 % Neutrophils # 5.1 (1.3-7.7) k/uL Lymphocytes # 2.0 (1.0-4.8) k/uL Monocytes # 0.4 (0-1.0) k/uL Eosinophils # 0.1 (0-0.7) k/uL Basophils # 0.0 (0-0.2) k/uL Sodium 143 (137-145) mmol/L Potassium 3.4 L (3.5-5.1) mmol/L Chloride 107 (98-107) mmol/L Carbon Dioxide 28 (22-30) mmol/L Anion Gap 8 mmol/L BUN 11 (7-17) mg/dL Creatinine 1.03 (0.52-1.04) mg/dL Est GFR (MDRD) Af Amer >60 (>60 ml/min/1.73 sqM) Est GFR (MDRD) Non-Af 55 (>60 ml/min/1.73 sqM) Glucose 100 H (74-99) mg/dL Calcium 9.2 (8.4-10.2) mg/dL Total Bilirubin 1.5 H (0.2-1.3) mg/dL AST 26 (14-36) U/L ALT 35 (9-52) U/L Alkaline Phosphatase 76 (38-126) U/L Total Protein 6.4 (6.3-8.2) g/dL Albumin 4.1 (3.5-5.0) g/dL Urine Color Yellow Urine Appearance Clear (Clear) Urine pH 5.5 (5.0-8.0) Ur Specific [place] 1.022 (1.001-1.035) Urine Protein 1+ H (Negative) Urine Glucose (UA) Negative (Negative) Urine Ketones Negative (Negative) Urine Blood Large H (Negative) Urine Nitrite Negative (Negative) Urine Bilirubin Negative (Negative) Urine Urobilinogen 2.0 (<2.0) mg/dL Ur Leukocyte Esterase Small H (Negative) Urine RBC >182 H (0-5) /hpf Urine WBC 4 (0-5) /hpf Ur Squamous Epith Cells 8 H (0-4) /hpf Urine Bacteria Rare H (None) /hpf Hyaline Casts 1 (0-2) /lpf Urine Mucus Rare H (None) /hpf Disposition Clinical Impression: Ureterolithiasis Disposition: HOME SELF-CARE Condition: Fair Instructions: Kidney Stones (ED), How to Strain Your Urine (ED) Additional Instructions: Increase fluids, take medications as directed. Follow-up family physician and neurologist if pain persists Prescriptions: Ondansetron Odt [Zofran Odt] 4 mg PO Q8HR PRN #10 tab PRN Reason: Nausea vomiting Tamsulosin [Flomax] 0.4 mg PO DAILY #14 cap Referrals: Wanda Hare MD [Primary Care Provider] - 1-2 days
[2017-05-18 15:24] LABS: Appearance,Urine Clear (Clear); Bacteria,Urine Rare /hpf; Bilirubin,Urine Negative (Negative); Glucose,Urine (UA) Negative (Negative); Ketones,Urine Negative (Negative); Leukocyte Esterase,Urine Small (Negative); Mucus,Urine Rare /hpf; Nitrite,Urine Negative (Negative); PH, Urine 5.5 (5.0-8.0); Particle Count 4725; Protein,Urine 1+ (Negative); RBC,Urine >182 /hpf (0-5); Specific Gravity,Urine 1.022 (1.001-1.035); Squamous Epithelial Cell,Urine 8 /hpf (0-4); UA Billing (MACRO vs. MICRO) MICRO; WBC,Urine 4 /hpf (0-5)
[2017-05-18] MEDS ORDERED: SODIUM CHLORIDE 0.9% 500 ML IV ONE (15:48)
[2017-05-18] MEDS ORDERED: HYDROmorphone 1 MG/ML 1 ML SYRINGE IVP STA ×2 (15:48→16:48)
[2017-05-18] MEDS ORDERED: ONDANSETRON 4 MG/2 ML VIAL IVP STA (15:54)
[2017-05-18] MEDS ORDERED: SODIUM CHLORIDE 0.9% 1,000 ML IV SCH (16:00)
[2017-05-18 16:09] LABS: Basophils % (A) 0 %; CH 33.9; CHCM 34.7; Eosinophils # (A) 0.1 k/uL (0-0.7); Eosinophils % (A) 1 %; HCT 36.1 % (34.0-46.0); HDW 2.66; HGB 12.5 gm/dL (11.4-16.0); Luc # (Auto) 0.15; Luc % (Auto) 2; Lymphocytes % (A) 26 %; MCH 33.9 pg (25.0-35.0); MCHC 34.5 g/dL (31.0-37.0); MCV 98.1 fL (80.0-100.0); Monocytes # (A) 0.4 k/uL (0-1.0); Monocytes % (A) 5 %; Neutrophils # (A) 5.1 k/uL (1.3-7.7); Neutrophils % (A) 67 %; RBC 3.68 m/uL (3.80-5.40); RDW 12.2 % (11.5-15.5); WBC 7.7 k/uL (3.8-10.6); WBC (Perox) 7.87
[2017-05-18 16:26] LABS: ALT 35 U/L (9-52); AST 26 U/L (14-36); Alkaline Phosphatase 76 U/L (38-126); Anion Gap 8 mmol/L; Blood Urea Nitrogen 11 mg/dL (7-17); Calcium 9.2 mg/dL (8.4-10.2); Carbon Dioxide 28 mmol/L (22-30); Chloride 107 mmol/L (98-107); Glucose 100 mg/dL (74-99); Non-African American GFR(MDRD) 55 (>60 ml/min/1.73 sqM); Potassium 3.4 mmol/L (3.5-5.1); Sodium 143 mmol/L (137-145); Total Bilirubin 1.5 mg/dL (0.2-1.3); Total Protein 6.4 g/dL (6.3-8.2)
--- NOTE | 2017-05-18 16:37 | XR ---
EXAMINATION TYPE: XR abdomen 2V DATE OF EXAM: 05/18/2017 COMPARISON: NONE HISTORY: Pain TECHNIQUE: Single supine KUB image of the abdomen is obtained FINDINGS: Small bowel demonstrates no evidence for dilatation or air fluid levels. Gas and fecal material is seen in non-distended colon. No convincing evidence for pneumoperitoneum. No unusual calcifications. The lung bases are clear. The osseous structures are intact. IMPRESSION: 1. Overall nonobstructive bowel gas pattern.
--- NOTE | 2017-05-18 17:43 | CT ---
EXAMINATION TYPE: CT abdomen pelvis wo con DATE OF EXAM: 05/18/2017 COMPARISON: The lungs HISTORY: LLQ pain. Hx of kidney stones CT DLP: 994.7 mGycm Automated exposure control for dose reduction was used. TECHNIQUE: Helical acquisition of images was performed from the lung bases through the pelvis. FINDINGS: LUNG BASES: No significant abnormality is appreciated. LIVER/GB: No significant abnormality is appreciated. PANCREAS: No significant abnormality is seen. SPLEEN: No significant abnormality is seen. ADRENALS: No significant abnormality is seen. KIDNEYS, URETERS, AND BLADDER: There is mild left-sided hydronephrosis and mild plus hydroureter all the way down to a 4 mm obstructing calcification in the distal most left ureter, approximately 1.5 cm proximal to the left UVJ. There is subtle periureteral edematous reticulation noted. In the upper po le of the right kidney is a 3 mm nonobstructing calcification; there are no other calcifications in t he kidneys or ureters or bladder. FREE AIR: No free air is visualized RETROPERITONEAL ADENOPATHY: None visualized REPRODUCTIVE ORGANS: No significant abnormality is seen PELVIC ADENOPATHY: None visualized. OSSEOUS STRUCTURES: No significant abnormality is seen. BOWEL: No significant abnormality is seen. VASCULATURE: Scattered intimal calculations are noted throughout the arterial anatomy, including the coronary arteries. Limitation: Without intravenous contrast Limited sensitivity for focal visceral and intravascular pat hology. IMPRESSION: POSITIVE FOR MILD-PLUS OBSTRUCTIVE UROPATHY ON THE LEFT, SECONDARY TO A 4 MM DISTAL LEFT URETERAL KYUNG CIFICATION.
[2017-05-18 18:18] VITALS: BP 118/61; PULSE 61; TEMP 96.9
== END 2017-05-18 18:18 | disposition home or self-care (01) ==
LOC: EC 14:37
DX: N13.2 Hydronephrosis with renal and ureteral calculous obstruction (principal); I12.9 Hypertensive chronic kidney disease with stage 1 through stage 4 chronic kidney disease, or unspecified chronic kidney disease; N18.3 Chronic kidney disease, stage 3 (moderate); I25.2 Old myocardial infarction; E78.5 Hyperlipidemia, unspecified; Z95.5 Presence of coronary angioplasty implant and graft; Z98.51 Tubal ligation status; Z88.5 Allergy status to narcotic agent; Z88.8 Allergy status to other drugs, medicaments and biological substances; Z79.82 Long term (current) use of aspirin; Z79.899 Other long term (current) drug therapy
CPT/HCPCS: 99284; 96374; 96375; 96376; 96361 ×2; 36415; 80053; 85025; 81001; 87086; 74020; 74176; J2405; J1170; 87077; 87186

== ENCOUNTER → 2017-06-08 | Outpatient (CLI) | payer BC ==
[2017-06-08 10:15] LABS: Basophils % (A) 1 %; CH 33.6; CHCM 34.2; Eosinophils # (A) 0.1 k/uL (0-0.7); Eosinophils % (A) 2 %; HCT 37.8 % (34.0-46.0); HDW 2.58; HGB 12.5 gm/dL (11.4-16.0); Luc # (Auto) 0.14; Luc % (Auto) 3; Lymphocytes # (A) 2.1 k/uL (1.0-4.8); Lymphocytes % (A) 38 %; MCH 32.5 pg (25.0-35.0); MCV 98.6 fL (80.0-100.0); Mean Platelet Volume 8.3; Monocytes # (A) 0.3 k/uL (0-1.0); Monocytes % (A) 6 %; Neutrophils # (A) 2.8 k/uL (1.3-7.7); Neutrophils % (A) 51 %; RBC 3.84 m/uL (3.80-5.40); RDW 12.3 % (11.5-15.5); WBC 5.5 k/uL (3.8-10.6); WBC (Perox) 5.39
[2017-06-08 10:30] LABS: Anion Gap 9 mmol/L; Blood Urea Nitrogen 13 mg/dL (7-17); Calcium 9.5 mg/dL (8.4-10.2); Carbon Dioxide 29 mmol/L (22-30); Chloride 104 mmol/L (98-107); Glucose 81 mg/dL (74-99); Magnesium 1.5 mg/dL (1.6-2.3); Non-African American GFR(MDRD) 54 (>60 ml/min/1.73 sqM); Phosphorous 3.8 mg/dL (2.5-4.5); Sodium 142 mmol/L (137-145); Total Bilirubin 1.8 mg/dL (0.2-1.3)
== END ==
LOC: LABWHC1 09:34
PROVIDERS: ATTEND Family Medicine
DX: E55.9 Vitamin D deficiency, unspecified (principal); N18.3 Chronic kidney disease, stage 3 (moderate); E80.6 Other disorders of bilirubin metabolism; E83.42 Hypomagnesemia; N25.81 Secondary hyperparathyroidism of renal origin
CPT/HCPCS: 36415; 80048; 82247; 82306; 83735; 83970; 84100; 85025

== ENCOUNTER → 2017-07-16 | Outpatient (CLI) | payer BC ==
--- NOTE | 2017-07-16 09:49 | US ---
EXAMINATION TYPE: US kidneys/renal and bladder DATE OF EXAM: 07/16/2017 COMPARISON: Ultrasound 01/11/2017, CT 05/18/2017 CLINICAL HISTORY: Left renal cyst. Patient stated she excreted renal stone after April CT; small right renal calcification EXAM MEASUREMENTS: Right Kidney: 8.2 x 5.5 x 4.5 cm Left Kidney: 8.5 x 4.2 x 5.4 cm Post Void Residual Volume: 0 mL Right Kidney: mid cortical hyperechoic focus (calcification) = 0.4 x 0.5 x 0.1cm; fluid area noted md adjacent to mid renal periphery suggests sonographic "sweat sign" and is noted bilaterally to kidney s suggesting renal failure. Left Kidney: No hydronephrosis or masses seen Bladder: wnl Bilateral Jets seen: Yes Normal Post Void Residual: yes, appears empty Urinary bladder is sonolucent. IMPRESSION: 1. Nonobstructing right renal stone. 2. Minimal fluid adjacent to the right mid renal periphery potentially suggesting right renal failure . Correlate with laboratory results.
== END | disposition home or self-care (01) ==
LOC: RADUSWWP 08:05
PROVIDERS: ATTEND Urology
DX: N20.0 Calculus of kidney (principal)
CPT/HCPCS: 76770

== ENCOUNTER → 2017-09-06 | Outpatient (CLI) | payer BC ==
[2017-09-06 10:20] LABS: Basophils % (A) 0 %; CH 33.3; CHCM 33.9; Eosinophils # (A) 0.1 k/uL (0-0.7); Eosinophils % (A) 1 %; HDW 2.48; HGB 12.5 gm/dL (11.4-16.0); Luc # (Auto) 0.14; Luc % (Auto) 2; Lymphocytes % (A) 26 %; MCH 32.4 pg (25.0-35.0); MCHC 32.9 g/dL (31.0-37.0); MCV 98.6 fL (80.0-100.0); Mean Platelet Volume 7.5; Monocytes # (A) 0.5 k/uL (0-1.0); Monocytes % (A) 6 %; Neutrophils # (A) 4.8 k/uL (1.3-7.7); Neutrophils % (A) 64 %; RBC 3.85 m/uL (3.80-5.40); RDW 12.3 % (11.5-15.5); WBC 7.4 k/uL (3.8-10.6); WBC (Perox) 7.65
[2017-09-06 10:41] LABS: ALT 28 U/L (9-52); AST 17 U/L (14-36); Alkaline Phosphatase 82 U/L (38-126); Anion Gap 9 mmol/L; Blood Urea Nitrogen 21 mg/dL (7-17); Carbon Dioxide 29 mmol/L (22-30); Chloride 103 mmol/L (98-107); Cholesterol 238 mg/dL (<200); Glucose 100 mg/dL (74-99); HDL Cholesterol 65 mg/dL (40-60); Magnesium 1.7 mg/dL (1.6-2.3); Non-African American GFR(MDRD) 50 (>60 ml/min/1.73 sqM); Potassium 4.7 mmol/L (3.5-5.1); Sodium 141 mmol/L (137-145); Total Bilirubin 1.4 mg/dL (0.2-1.3); Uric Acid 6.4 mg/dL (3.7-7.4)
[2017-09-06 17:20] LABS: Urine Creatinine 166.5 mg/dL
== END | disposition home or self-care (01) ==
LOC: LABWHC1 09:19
PROVIDERS: ATTEND Family Medicine
DX: E78.5 Hyperlipidemia, unspecified (principal); E55.9 Vitamin D deficiency, unspecified; N18.3 Chronic kidney disease, stage 3 (moderate); N25.81 Secondary hyperparathyroidism of renal origin
CPT/HCPCS: 36415; 80053; 80061; 82043; 82306; 82570; 83735; 83970; 84100; 84550; 85025

== ENCOUNTER → 2017-12-07 | Outpatient (CLI) | payer BC ==
[2017-12-07 09:09] LABS: Basophils % (A) 1 %; Eosinophils # (A) 0.1 k/uL (0-0.7); Eosinophils % (A) 2 %; HCT 35.2 % (34.0-46.0); HGB 11.6 gm/dL (11.4-16.0); Lymphocytes # (A) 1.6 k/uL (1.0-4.8); Lymphocytes % (A) 37 %; MCH 32.8 pg (25.0-35.0); MCV 99.4 fL (80.0-100.0); Mean Platelet Volume 7.7; Monocytes # (A) 0.3 k/uL (0-1.0); Monocytes % (A) 6 %; Neutrophils # (A) 2.3 k/uL (1.3-7.7); Neutrophils % (A) 53 %; Platelet Count 233 k/uL (150-450); RBC 3.54 m/uL (3.80-5.40); RDW 12.3 % (11.5-15.5); WBC 4.3 k/uL (3.8-10.6)
[2017-12-07 09:29] LABS: Anion Gap 10 mmol/L; Blood Urea Nitrogen 15 mg/dL (7-17); Calcium 9.7 mg/dL (8.4-10.2); Carbon Dioxide 29 mmol/L (22-30); Chloride 106 mmol/L (98-107); Glucose 101 mg/dL (74-99); Magnesium 1.9 mg/dL (1.6-2.3); Potassium 4.2 mmol/L (3.5-5.1); Sodium 145 mmol/L (137-145)
[2017-12-07 15:27] LABS: Vitamin D 25 Hydroxy 58.5 ng/mL (30.0-100.0)
[2017-12-07 17:18] LABS: Parathyroid Hormone Intact 77.6 pg/mL (14.0-72.0)
== END | disposition home or self-care (01) ==
LOC: LABWHC1 08:11
PROVIDERS: ATTEND Family Medicine
DX: N18.3 Chronic kidney disease, stage 3 (moderate) (principal); N25.81 Secondary hyperparathyroidism of renal origin; E55.9 Vitamin D deficiency, unspecified
CPT/HCPCS: 36415; 80048; 82306; 83735; 83970; 85025

== ENCOUNTER → 2018-03-07 | Outpatient (CLI) | payer BC ==
[2018-03-07 10:14] LABS: Basophils % (A) 0 %; Eosinophils # (A) 0.2 k/uL (0-0.7); Eosinophils % (A) 3 %; HCT 37.5 % (34.0-46.0); HGB 13.1 gm/dL (11.4-16.0); Lymphocytes # (A) 1.9 k/uL (1.0-4.8); Lymphocytes % (A) 33 %; MCH 32.6 pg (25.0-35.0); MCV 93.2 fL (80.0-100.0); Mean Platelet Volume 7.9; Monocytes # (A) 0.3 k/uL (0-1.0); Monocytes % (A) 6 %; Neutrophils # (A) 3.4 k/uL (1.3-7.7); Neutrophils % (A) 57 %; Platelet Count 237 k/uL (150-450); RBC 4.03 m/uL (3.80-5.40); RDW 12.1 % (11.5-15.5); WBC 5.9 k/uL (3.8-10.6)
[2018-03-07 10:25] LABS: Albumin 4.4 g/dL (3.5-5.0); Magnesium 1.6 mg/dL (1.6-2.3); Potassium 4.3 mmol/L (3.5-5.1); Total Bilirubin 1.8 mg/dL (0.2-1.3); Total Protein 6.9 g/dL (6.3-8.2)
[2018-03-07 16:17] LABS: Parathyroid Hormone Intact 70.8 pg/mL (14.0-72.0)
[2018-03-07 17:15] LABS: Vitamin D 25 Hydroxy 48.4 ng/mL (30.0-100.0)
== END ==
LOC: LABWHC1 09:30
PROVIDERS: ATTEND Family Medicine
DX: E78.5 Hyperlipidemia, unspecified (principal); N25.81 Secondary hyperparathyroidism of renal origin; E83.42 Hypomagnesemia; I12.9 Hypertensive chronic kidney disease with stage 1 through stage 4 chronic kidney disease, or unspecified chronic kidney disease; N18.3 Chronic kidney disease, stage 3 (moderate)
CPT/HCPCS: 36415; 80053; 80061; 82043; 82306; 82570; 83735; 83970; 84100; 85025

== ENCOUNTER → 2018-06-08 | Outpatient (CLI) | payer BC ==
[2018-06-08 09:25] LABS: Basophils % (A) 0 %; Eosinophils # (A) 0.1 k/uL (0-0.7); Eosinophils % (A) 2 %; HGB 11.9 gm/dL (11.4-16.0); Lymphocytes # (A) 1.7 k/uL (1.0-4.8); Lymphocytes % (A) 36 %; MCH 32.8 pg (25.0-35.0); MCV 96.4 fL (80.0-100.0); Mean Platelet Volume 7.7; Monocytes # (A) 0.3 k/uL (0-1.0); Monocytes % (A) 6 %; Neutrophils # (A) 2.5 k/uL (1.3-7.7); Neutrophils % (A) 53 %; Platelet Count 227 k/uL (150-450); RBC 3.62 m/uL (3.80-5.40); RDW 12.3 % (11.5-15.5); WBC 4.7 k/uL (3.8-10.6)
[2018-06-08 09:51] LABS: Calcium 9.4 mg/dL (8.4-10.2); Magnesium 1.7 mg/dL (1.6-2.3); Phosphorus 3.6 mg/dL (2.5-4.5); Potassium 4.7 mmol/L (3.5-5.1); Uric Acid 6.6 mg/dL (3.7-7.4)
[2018-06-08 16:50] LABS: Parathyroid Hormone Intact 56.9 pg/mL (14.0-72.0)
[2018-06-08 16:58] LABS: Vitamin D 25 Hydroxy 57.8 ng/mL (30.0-100.0)
== END | disposition home or self-care (01) ==
LOC: LABWHC1 08:52
PROVIDERS: ATTEND Family Medicine
DX: N18.3 Chronic kidney disease, stage 3 (moderate) (principal); E55.9 Vitamin D deficiency, unspecified
CPT/HCPCS: 36415; 80048; 82306; 83735; 83970; 84100; 84550; 85025

== ENCOUNTER → 2018-07-28 | Outpatient (CLI) | payer BC ==
--- NOTE | 2018-07-29 13:51 | MM ---
Reason for exam: screening (asymptomatic). Last mammogram was performed 2 years and 11 months ago. History: Patient is postmenopausal. Physical Findings: A clinical breast exam by your physician is recommended on an annual basis and results should be correlated with mammographic findings. MG 3D Screening Mammo W/Cad Bilateral CC and MLO view(s) were taken. Prior study comparison: August 21, 2015, mammogram, performed at [place]. August 15, 2014, mammogram, performed at [place]. There are scattered fibroglandular densities. Benign appearing bilateral calcifications. Stable bilateral focal asymmetries. No significant changes when compared with prior studies. ASSESSMENT: Benign, BI-RAD 2 RECOMMENDATION: Routine screening mammogram of both breasts in 1 year.
== END | disposition home or self-care (01) ==
LOC: RADMAMWWP 08:47
PROVIDERS: ATTEND Family Medicine
DX: Z12.31 Encounter for screening mammogram for malignant neoplasm of breast (principal)
CPT/HCPCS: 77063; 77067

== ENCOUNTER → 2018-09-12 | Outpatient (CLI) | payer BC ==
[2018-09-12 11:45] LABS: HCT 37.4 % (34.0-46.0); HGB 12.5 gm/dL (11.4-16.0); MCH 32.8 pg (25.0-35.0); MCHC 33.3 g/dL (31.0-37.0); MCV 98.4 fL (80.0-100.0); Mean Platelet Volume 7.5; Platelet Count 246 k/uL (150-450); WBC 5.8 k/uL (3.8-10.6)
[2018-09-12 16:28] LABS: Parathyroid Hormone Intact 54.4 pg/mL (14.0-72.0)
[2018-09-12 17:48] LABS: Albumin 4.5 g/dL (3.80-4.90); Albumin/Globulin Ratio 2.5 (1.20-2.10); Anion Gap 9.3 mmol/L (4.00-12.00); Calcium 9.7 mg/dL (8.7-10.3); Carbon Dioxide 24.7 mmol/L (21.6-31.8); Globulin 1.8 g/dL (2.1-3.7); LDL Cholesterol,Calculated 125.8 mg/dL (0.0-131.0); Magnesium 1.6 mg/dL (1.5-2.4); Potassium 4.6 mmol/L (3.5-5.5); Total Bilirubin 1.9 mg/dL (0.3-1.2); Total Protein 6.3 g/dL (6.2-8.2); VLDL Calculation 40.2 mg/dL (5.00-40.00)
== END | disposition home or self-care (01) ==
LOC: LABWHC1 10:54
PROVIDERS: ATTEND Family Medicine
DX: N18.3 Chronic kidney disease, stage 3 (moderate) (principal); D63.1 Anemia in chronic kidney disease; E55.9 Vitamin D deficiency, unspecified; E78.5 Hyperlipidemia, unspecified; N25.81 Secondary hyperparathyroidism of renal origin
CPT/HCPCS: 36415; 80053; 80061; 82043; 82306; 82570; 83735; 83970; 85027